=== PATIENT | male | born 1970 | race Caucasian/White ===

== ENCOUNTER → 2017-04-08 | Outpatient (CLI) | payer BC ==
[~2017-04-08] MED LIST: AMLO10TA2 PO; LISI20TA PO; OMEP40CA2 PO
--- NOTE | 2017-04-09 05:03 | REP ---
Clinical: Thyroid nodules. Technique: Real time garces scale ultrasound examination using linear high frequency transducer. Comparison: 04/11/2016. Findings: The thyroid gland is heterogeneous and multinodular appear relatively similar to prior examination. Right lobe measures 4.4 x 1.9 x 1.9 cm and includes 7 x 12 x 11 mm upper pole hypoechoic nodule, 6 x 3 x 3 mm hypoechoic mid pole nodule, and 6 x 7 x 8 mm hypoechoic lower pole nodule. Left lobe measures 3.5 x 1.5 x 1.6 cm and includes 10 x 7 x 7 mm hypoechoic mid pole nodule and 10 x 9 x 6 mm hypoechoic mid/lower pole nodule. Isthmus measures 7 mm in width. Impression: Heterogeneous multinodular thyroid gland relatively similar to prior examination. Signed by Barron Edmonds MD 04/09/2017 04:55 A
== END ==
LOC: M RAD 16:00
PROVIDERS: ATTEND Otolaryngology
DX: E04.1 Nontoxic single thyroid nodule (principal)

== ENCOUNTER 2018-07-29 16:52 | Emergency (ER) | payer BC ==
[~2018-07-29] VITALS: Ht 182.9 cm; Wt 157.3 kg
[~2018-07-29 16:52] MED LIST changes: -AMLO10TA2 PO; +AMLO10TA5 PO
[2018-07-29 16:53] VITALS: BP 138/83
[2018-07-29] MEDS ORDERED: CHLO125TA (17:01)
[2018-07-29] MEDS ORDERED: COLC1CAP (17:01)
[2018-07-29] MEDS ORDERED: LISI40TA (17:01)
[2018-07-29] MEDS ORDERED: SPIR-10 (17:01)
[2018-07-29] MEDS ORDERED: IBUPROFEN 600 MG TAB PO ONE (17:45)
[2018-07-29] MEDS ORDERED: ACETAMINOPHEN 325 MG TAB PO ONE (17:45)
[2018-07-29] MEDS ORDERED: NORCOTAB PO (18:44)
--- NOTE | 2018-07-29 19:57 | REP ---
LEFT WRIST, FOUR VIEWS: HISTORY: Fall. There is a nondisplaced fracture of the distal radius. There is no dislocation. The joint spaces are normal in appearance. IMPRESSION:Nondisplaced fracture of the distal radius. Electronically Signed by Ben Henry MD 07/30/2018 08:07 A
== END 2018-07-29 19:05 | disposition home or self-care (01) ==
LOC: M ED 16:52
DX: S52.502A Unspecified fracture of the lower end of left radius, initial encounter for closed fracture (principal); W19.XXXA Unspecified fall, initial encounter; Y92.410 Unspecified street and highway as the place of occurrence of the external cause

== ENCOUNTER → 2018-07-30 | Outpatient (CLI) | payer BC ==
[~2018-07-30] MED LIST changes: +CHLO125TA; +COLC1CAP; +LISI40TA; +NORCOTAB PO; +SPIR-10
--- NOTE | 2018-07-30 14:48 | REP ---
CT study left wrist without contrast: History: Distal radial fracture. Rule out scaphoid fracture. Rule out DISI deformity. Comparison radiographs July 29, 2018. Technique: Helical scanning is acquired. 2 mm axial images are for generated. Coronal and sagittal MPR images are generated. CT findings: There is a comminuted and articular fracture of the distal radius as seen on radiographs. A horizontal component of the fracture goes through the distal radial metaphysis extending to its lateral cortex. There is a coronally oriented component of the fracture exiting the articular cortex dorsally. This component of the fracture is somewhat displaced and diastatic, 5-6 mm of diastases. There is impaction and slight comminution here as well. No distal ulnar fracture is appreciated. The carpal bones appear intact with no carpal bone or metacarpal fracture visualized. However, the scaphoid appears rotated somewhat in a volar direction. The scapholunate space or interval is somewhat widened consistent with disruption of the scapholunate ligament. The scapholunate angle is increased at 89 degrees. The capitolunate angle is not increased however measured at 29 degrees. Exam is otherwise unremarkable except for soft tissue swelling at the wrist. Impression: Intra-articular distal radial fracture with dorsal area. Off and impaction. There are some features of dorsal intercalated segment instability as discussed above. Electronically Signed by José Yañez MD 07/30/2018 02:39 P
== END ==
LOC: M RAD 13:40
PROVIDERS: ATTEND Physician Assistant Surgical
DX: S52.592A Other fractures of lower end of left radius, initial encounter for closed fracture (principal)

== ENCOUNTER → 2018-10-24 | Outpatient (CLI) | payer BC ==
[~2018-10-24] MED LIST changes: +HYDR-3715 PO; -NORCOTAB PO
--- NOTE | 2018-10-24 16:41 | REP ---
HISTORY: Followup thyroid nodule. COMPARISON: Multiple, the latest 04/08/2017 which showed multinodular thyroid. Right lobe of the thyroid gland measures 4.6 x 2.2 x 2.5 cm and the left lobe measures 5.1 x 1.5 x 2.3 cm. The isthmus measures 6 mm. The thyroid parenchymal echo pattern is markedly heterogenous. In the right lobe of the thyroid gland there are four solid nodules, the largest measures 1.4 x 1 x 1.1 cm, the next 1.1 x 0.8 x 0.8 cm, the next 0.6 x 0.6 x 0.5 cm and the smallest 0.5 x 0.5 x 0.5 cm. On the left there are three solid nodules, the largest measures 1.3 x 0.8 x 1.1 cm, the next is complex cystic and solid measuring 0.9 x 0.8 x 0.6 cm and the smallest is solid measuring 0.4 x 0.3 x 0.7 cm. IMPRESSION: Multinodular goiter as described above. Electronically Signed by Leo Chen DO 10/24/2018 05:13 P
== END ==
LOC: M RAD 13:34
PROVIDERS: ATTEND Otolaryngology
DX: E04.2 Nontoxic multinodular goiter (principal)

== ENCOUNTER 2019-03-02 09:47 | Day surgery (SDC) | payer BC ==
[~2019-03-02] VITALS: Ht 182.9 cm; Wt 163.3 kg
[~2019-03-02 09:47] MED LIST changes: +ATOR1TAB21 PO; -LISI20TA PO; +LISI20TA19 PO; +NS 1,000 ML IV ONE
[2019-03-02] MEDS ORDERED: LIDOCAINE 2% INJ 100 MG/5 ML SDV (FOR ANES.) As Ordered ONE (09:49)
[2019-03-02] MEDS ORDERED: PROPOFOL 200 MG/20 ML VIAL As Ordered ONE ×2 (09:49→11:45)
--- NOTE | 2019-03-02 12:00 | ROOR ---
Patient Name: Juan Lynch Procedure Date: 03/02/2019 11:31 AM Date of : 1970 Age: 48 Room: [facility] Gender: Male Note Status: Finalized Procedure: Total Colonoscopy to Cecum Indications: High risk colon cancer surveillance: Personal history of colonic polyps, Last colonoscopy: 2011 Providers: Rogelio Cook MD Referring MD: Darion Bryant MD Requesting Provider: Medicines: Monitored Anesthesia Care Complications: No immediate complications. Procedure: Pre-Anesthesia Assessment: - The heart rate, respiratory rate, oxygen saturations, blood pressure, adequacy of pulmonary ventilation, and response to care were monitored throughout the procedure. The Colonoscope was introduced through the anus and advanced to the cecum, identified by appendiceal orifice and ileocecal valve. The colonoscopy was performed without difficulty. The patient tolerated the procedure well. The quality of the bowel preparation was excellent. Findings: The perianal and digital rectal examinations were normal. Non-bleeding internal hemorrhoids were found during retroflexion. The hemorrhoids were small and Grade I (internal hemorrhoids that do not prolapse). No other significant abnormalities were identified in a careful examination of the remainder of the colon. The exam was otherwise without abnormality on direct and retroflexion views. Impression: - Non-bleeding internal hemorrhoids. - The examination was otherwise normal on direct and retroflexion views. - No specimens collected. - The exam was otherwise normal to the cecum. Recommendation: - Patient has a contact number available for emergencies. The signs and symptoms of potential delayed complications were discussed with the patient. Return to normal activities tomorrow. Written discharge instructions were provided to the patient. - High fiber diet. - Discharge patient to home. - Repeat colonoscopy in 5 years for surveillance. - Return to referring physician. - The findings and recommendations were discussed with the patient's family. Rogelio Cook MD Rogelio Cook MD 03/02/2019 12:00:06 PM Electronically signed by Rogelio Cook MD Number of Addenda: 0 Note Initiated On: 03/02/2019 11:31 AM Estimated Blood Loss: Estimated blood loss: none.
[2019-03-02 12:41] VITALS: BP 139/87
== END 2019-03-02 12:31 | disposition home or self-care (01) ==
LOC: M OPP 09:47 → MERGE 11:00 → M OPP 12:31
PROVIDERS: ATTEND Internal Medicine Gastroenterology
DX: Z12.11 Encounter for screening for malignant neoplasm of colon (principal); Z86.010 Personal history of colon polyps; K64.0 First degree hemorrhoids; G47.30 Sleep apnea, unspecified; Z79.899 Other long term (current) drug therapy

== ENCOUNTER → 2020-03-03 | Outpatient (CLI) | payer BC ==
[~2020-03-03] MED LIST changes: -AMLO10TA5 PO; +AMLO1TAB25 PO; -LISI20TA19 PO; +LISI20TA35 PO; -NS 1,000 ML IV ONE; -OMEP40CA2 PO; +OMEP40CA97 PO
--- NOTE | 2020-03-15 10:28 | REP ---
THYROID ULTRASOUND CLINICAL: Follow-up multinodular goiter. TECHNIQUE: Real-time garces scale and color evaluation using linear high frequency and curved array transducers. COMPARISON: Multiple examinations dating between 10/24/2018 and 09/28/2015. FINDINGS: Examination is limited due to technical factors and body habitus. The thyroid gland is diffusely heterogeneous and multinodular essentially unchanged from prior examinations. The right lobe measures approximately 4.9 x 2.4 x 2.2 cm with multiple hypoechoic nodules measuring up to approximately 16 x 13 x 11 mm. The left thyroid lobe measures 4.0 x 1.9 x 2.2 cm and includes multiple hypoechoic nodules measuring up to approximately 12 x 10 x 12 mm. IMPRESSION: Heterogeneous multinodular goiter essentially unchanged from prior examination. Examination is somewhat limited due to body habitus and associated technical factors. MTDD
== END ==
LOC: M RAD 12:52
PROVIDERS: ATTEND Otolaryngology
DX: E04.2 Nontoxic multinodular goiter (principal)

== ENCOUNTER 2021-01-10 06:06 | Day surgery (SDC) | payer BC ==
[~2021-01-10] VITALS: Ht 182.9 cm; Wt 159.8 kg
[~2021-01-10 06:06] MED LIST changes: -LISI40TA; +LISI40TA4; +OMEP40CA4 PO; -OMEP40CA97 PO; -SPIR-10; +SPIR-10 PO
[2021-01-10] MEDS ORDERED: METF500T13 PO (06:13)
[2021-01-10] MEDS ORDERED: NS 1,000 ML IV ONE (07:35)
[2021-01-10 08:21] LABS: BASO % 0.3 % (0.0-1.0); EOS # 0.1 10^3/uL (0.0-0.5); EOS % 1.3 % (0.0-3.0); HEMATOCRIT 44.5 % (42.0-52.0); HEMOGLOBIN 15.8 g/dl (13.5-17.5); LYMPH # 1.4 10^3/uL (1.5-5.0); LYMPH % 12.9 % (24.0-44.0); MEAN CORPUSCULAR HEMOGLOBIN 31.2 pg (27.0-33.0); MEAN CORPUSCULAR HGB CONC 35.5 g/dl (32.0-36.5); MEAN CORPUSCULAR VOLUME 87.9 fl (80.0-96.0); MONO # 0.8 10^3/uL (0.0-0.8); MONO % 7.3 % (2.0-8.0); NEUTROPHILS # 8.1 10^3/uL (1.5-8.5); NEUTROPHILS % 77.8 % (36.0-66.0); PLATELET COUNT, AUTOMATED 155 10^3/uL (150-450); RED BLOOD COUNT 5.06 10^6/uL (4.30-6.10); WHITE BLOOD COUNT 10.5 10^3/uL (4.0-10.0)
[2021-01-10] MEDS ORDERED: ISOVUE-370 76% 100ML VIAL As Ordered ONE (08:30)
[2021-01-10 08:46] LABS: BILIRUBIN,DIRECT 0.2 MG/DL (0.0-0.2); BILIRUBIN,TOTAL 0.9 MG/DL (0.2-1.0); TOTAL PROTEIN 7.3 GM/DL (6.4-8.2)
--- NOTE | 2021-01-10 09:21 | REP ---
INDICATION: RLQ pain. COMPARISON: None. TECHNIQUE: Bolus of 100 mL Isovue 370 scanning through the abdomen pelvis with both coronal and sagittal reconstructions provided. FINDINGS: CT abdomen: Minor dependent atelectatic changes the in the deep sulci, lungs otherwise clear. Heart is not enlarged. There is no pericardial thickening or effusion. Liver shows mild diffuse hypodensity compared to the spleen that may reflect some fatty infiltration. There is a 16 mm hypodensity in the left hepatic lobe, likely a small hepatic cyst. No biliary dilatation, solid mass or ascites. No splenomegaly. A 1.3 cm cyst is seen at the inferior aspect of the spleen. No left upper quadrant ascites. The adrenal glands, gallbladder, pancreas and aorta were all grossly unremarkable. Kidneys show no stone, mass or cyst. There is no hydronephrosis or hydroureter. No periaortic, mesenteric or any retroperitoneal lymphadenopathy. Abdominal portion of the colon shows cystic few scattered diverticula without diverticulitis. There is a 8 mm stone at the proximal appendix. Mid to distal appendix is thickened and there are minor degenerative changes at L5-S1, the bones without any other significant finding. CT pelvis: The bony sacrum, pelvis and hips show minimal degenerative change without fracture or destructive lesion. There is no ventral or inguinal hernia nor pathologic inguinal adenopathy. The distal left colon and sigmoid show a few scattered diverticula without signs of diverticulitis or colitis. Distal small bowel loops in the pelvis were unremarkable. Inflammatory changes are seen in the mid to distal periappendiceal fat. Bladder was unremarkable. I do not see perforation or free air. No abscess. Small bowel loops are unremarkable. There is an umbilical hernia with only omental fat in it. No bowel herniation. No ascites or free air. Bladder is without stone mass or wall thickening. Distal ureters without dilatation or stone. IMPRESSION: 1. Early changes of acute appendicitis with periappendiceal fat stranding from mid to distal tip and with an associated 8 mm appendicolith at its proximal end. No abscess, perforation or other acute finding. There are a few scattered diverticula in the colon without diverticulitis or colitis. 2. Simple cyst in the left lobe of the liver and inferior tip of the spleen. The solid organs in the upper abdomen, gallbladder, stomach and great vessels are unremarkable. No adenopathy. Bones show minor degenerative changes but no acute finding. <Electronically signed by Kunal Mckeon > 01/10/21 0917
[2021-01-10] MEDS ORDERED: PIPERACILLIN/TAZOBACTAM SOD 3.375 GM in D5W MINI-BAG PLUS 50 ML IV ONE (09:45)
[2021-01-10] MEDS ORDERED: CHLO25TA PO (10:00)
[2021-01-10] MEDS ORDERED: LISI40TA4 PO (10:00)
[2021-01-10] MEDS ORDERED: VITA500T41 PO (10:00)
[2021-01-10] MEDS ORDERED: AMLO1TAB24 PO (10:00)
[2021-01-10] MEDS ORDERED: VITMTA PO (10:00)
[2021-01-10] MEDS ORDERED: OMEP-218 PO (10:00)
[2021-01-10 11:35] LABS: RSV AMPLIFICATION NEGATIVE (NEGATIVE)
[2021-01-10] MEDS ORDERED: BUPIVACAINE LIPOSOME/PF 1.3% 20ML VIAL (13.3MG/ML)(EXPAREL)(C9290 PER1MG) As Ordered ONE (13:58)
[2021-01-10] MEDS ORDERED: BUPIVACAINE HCL 0.25% 10ML VIAL As Ordered ONE (13:58)
[2021-01-10] MEDS ORDERED: BUPIVACAINE/EPIN 0.25% 30 ML VIAL As Ordered ONE (13:58)
[2021-01-10] MEDS ORDERED: ZOSYN 3.375GM VIAL (J2543) As Ordered ONE (15:36)
[2021-01-10] MEDS ORDERED: propofoL 200 MG/20 ML VIAL As Ordered ONE (16:27)
[2021-01-10] MEDS ORDERED: ACETAMINOPHEN 1000MG 100ML IV BTL (OFIRMEV) (J0131 PER 10MG) As Ordered ONE (16:27)
[2021-01-10] MEDS ORDERED: fentaNYL 250 MCG/5 ML INJECTION (J3010) As Ordered ONE (16:27)
[2021-01-10] MEDS ORDERED: dexameTHASONE 4 MG/ML 1ML VIAL (J1100 PER 1MG) As Ordered ONE (16:27)
[2021-01-10] MEDS ORDERED: SUCCINYLCHOLINE 100 MG/5 ML SYRINGE (J0330) As Ordered ONE (16:27)
[2021-01-10] MEDS ORDERED: ePHEDrine SULFATE 25 MG/5 ML(5MG/ML) SYRINGE As Ordered ONE (16:27)
[2021-01-10] MEDS ORDERED: MIDAZOLAM INJ 2MG/2ML VIAL (J2250 PER 1MG) As Ordered ONE (16:27)
[2021-01-10] MEDS ORDERED: KETOROLAC 60MG 2ML VIAL As Ordered ONE (16:27)
[2021-01-10] MEDS ORDERED: LIDOCAINE 2% 100MG/5ML SDV (FOR ANES.) As Ordered ONE (16:27)
[2021-01-10] MEDS ORDERED: SUGAMMADEX SODIUM 500 MG/5 ML VIAL (BRIDION) As Ordered ONE (16:27)
[2021-01-10] MEDS ORDERED: ONDANSETRON 4MG/2ML VIAL As Ordered ONE ×2 (16:27→16:59)
[2021-01-10] MEDS ORDERED: ROCURONIUM BROMIDE 50 MG/5 ML VIAL As Ordered ONE (16:27)
[2021-01-10] MEDS ORDERED: IPRATROPIUM 0.5MG/ALBUTEROL 2.5MG INH SOL UD 3ML (DUONEB) NEB PRN (16:50)
[2021-01-10] MEDS ORDERED: NS 1,000 ML IV SCH (16:50)
[2021-01-10] MEDS ORDERED: MORPHINE 2 MG/ML 1ML VIAL (J2270) IV PRN (16:50)
[2021-01-10] MEDS ORDERED: ONDANSETRON 4MG/2ML VIAL IV PRN ×2 (16:50→17:00)
[2021-01-10] MEDS ORDERED: LR 1,000 ML IV SCH (17:00)
[2021-01-10] MEDS ORDERED: MEPERIDINE INJ 25 MG/ML VIAL (J2175) IV PRN (17:00)
[2021-01-10] MEDS: HYDROMORPHONE HCL 0.5 MG/ 0.5 ML SYRINGE (J1170 PER 1) IV PRN ×2 (17:07→17:13)
[2021-01-10 18:30] VITALS: BP 152/87
[2021-01-10 18:50] VITALS: O2SAT 94
[2021-01-10 19:00] VITALS: BP 151/87
[2021-01-10 19:25] VITALS: BP 158/97
[2021-01-10] MEDS: IPRATROPIUM 0.5MG/ALBUTEROL 2.5MG INH SOL UD 3ML (DUONEB) NEB SCH (20:00)
[2021-01-10] MEDS: PERCOCET 5MG/325MG TAB PO PRN (22:17)
[2021-01-10] MEDS: PIPERACILLIN/TAZOBACTAM SOD 3.375 GM in D5W MINI-BAG PLUS 50 ML IV SCH (22:18)
[2021-01-10] MEDS: KETOROLAC 30 MG/ML 1ML VIAL IV SCH (22:18)
[2021-01-11 02:00] VITALS: BP 133/85
[2021-01-11] MEDS: IPRATROPIUM 0.5MG/ALBUTEROL 2.5MG INH SOL UD 3ML (DUONEB) NEB SCH ×2 (02:00→07:07)
[2021-01-11] MEDS: KETOROLAC 30 MG/ML 1ML VIAL IV SCH ×3 (04:23→11:00)
[2021-01-11] MEDS: PIPERACILLIN/TAZOBACTAM SOD 3.375 GM in D5W MINI-BAG PLUS 50 ML IV SCH ×3 (04:23→10:00)
[2021-01-11 06:00] VITALS: BP 127/79
[2021-01-11] MEDS ORDERED: PANTOPRAZOLE 40MG TAB (PROTONIX) PO SCH (09:00)
[2021-01-11 10:00] VITALS: BP 146/100
[2021-01-11] MEDS: PERCOCET 5MG/325MG TAB PO PRN (14:00)
--- NOTE | 2021-01-17 08:50 | RO ---
OPERATIVE NOTE DATE OF OPERATION: 01/10/2021 PREOPERATIVE DIAGNOSIS: Incarcerated umbilical hernia and acute appendicitis. POSTOPERATIVE DIAGNOSIS: Incarcerated umbilical hernia and acute appendicitis. PROCEDURE: Open repair of incarcerated umbilical hernia and laparoscopic appendectomy. SURGEON: Simone Islas Jr, MD [employer]: ANESTHESIA: General endotracheal anesthesia. EBL: Minimal. FLUIDS: Crystalloid. DESCRIPTION OF PROCEDURE: The patient was brought to the operating room and was given general anesthesia. After adequate anesthesia and preoperative antibiotics were given, the patient was prepped and draped in usual sterile fashion. The patient had developed appendicitis and with the abdominal distention and bloating the patient's umbilical hernia became much more symptomatic and tender and I was not able to reduce this preoperatively. Thus a periumbilical incision was made with skin knife, blunt dissection was carried down to the base of the hernia and this was transected at the level of the fascia. [id number] suture was used to decrease the fascial size and then a 12 mm trocar was placed through this fascial defect into the abdominal cavity, insufflated to 15 mm and suprapubic 5 mm and 5 mm left lower quadrant trocar were both placed and the appendix was taken out first using Harmonic scalpel along the mesentery and then the base of this was transected using FRANCISCO stapler. It was placed in Endo Catch bag, brought out through the umbilicus. The umbilicus was closed with three [id number] #0 Ethibond sutures. The dermis was brought together with 3-0 Vicryl and 4-0 Vicryl subcuticular was used to close all incisions. Dry, sterile dressing was applied. The patient was awakened, extubated and brought to the recovery room awake, alert, hemodynamically stable. Sponge and needle counts correct x2.
== END 2021-01-11 14:00 | disposition home or self-care (01) ==
LOC: M ED 06:06 → M SDC 11:40 → M MS5PR 18:25 → M SDC 01-11 14:00
PROVIDERS: ATTEND Surgery
DX: K35.80 Unspecified acute appendicitis (principal); K42.0 Umbilical hernia with obstruction, without gangrene; I10 Essential (primary) hypertension; E78.5 Hyperlipidemia, unspecified; E11.9 Type 2 diabetes mellitus without complications; G47.30 Sleep apnea, unspecified; K44.9 Diaphragmatic hernia without obstruction or gangrene; M10.9 Gout, unspecified; Z79.899 Other long term (current) drug therapy; Z79.84 Long term (current) use of oral hypoglycemic drugs
CPT/HCPCS: 44970; 74177; 80047; 80076; 81001; 83605; 83690; 85025; 87040; 87631; 88302; 88304; 94640; 96361; 96365; 96366; 96375; 96376; 99284; C9290; J0131; J0330; J1100; J1170; J1885; J2250; J2405; J2543; J3010; Q9967

== ENCOUNTER → 2021-03-01 | Outpatient (CLI) | payer BC ==
[~2021-03-01] MED LIST changes: +AMLO1TAB24 PO; +CHLO25TA PO; +LISI40TA4 PO; +METF500T13 PO; +OMEP-218 PO; +VITA500T41 PO; +VITMTA PO
--- NOTE | 2021-03-01 12:22 | REP ---
INDICATION: NON TOXIC MULTINODULAR GOITER. COMPARISON: 03/03/2020. TECHNIQUE: Real-time sonographic evaluation of thyroid performed. FINDINGS: The right lobe measures 5.4 x 2.3 x 3.2 cm and left lobe 4.8 x 2.1 x 2.0 cm. The thyroid may be slightly larger than on the prior study, previously the right lobe measured 4.9 cm in length and left lobe 4.0 cm in length. There is a stable nodule in the right upper pole which measure 1.5 x 1.2 x 1.4 cm. There is an adjacent nodule measuring 1.8 x 1.0 x 1.2 cm which appears to have increased in size since the prior study. There is a nodule in the right isthmus which measures 1.7 x 1.2 x 1.9 cm, increased in size. In the right lower pole there is a nodule 1.7 x 1.0 x 1.8 cm which has mildly increased in size. In the left upper pole there is a nodule measuring 1.3 x 0.5 x 1.1 cm essentially unchanged. In the left mid aspect there is a nodule 1.4 x 1.1 x 1.3 cm which has increased in size. IMPRESSION: Both lobes of the thyroid appear mildly larger than on the prior study. A nodule in the right upper pole, another in the right isthmus, a nodule in the right lower pole and another in the left mid aspect appear to have mildly increased in size. <Electronically signed by Shade Cherry > 03/01/21 [id number]
== END ==
LOC: M RAD 10:36
PROVIDERS: ATTEND Otolaryngology
DX: E04.2 Nontoxic multinodular goiter (principal)

== ENCOUNTER → 2021-04-28 | Outpatient (CLI) | payer BC ==
[~2021-04-28] MED LIST changes: +LIDOCAINE 1% MDV 20ML VIAL As Ordered ONE
[2021-04-28 13:00] VITALS: BP 174/104
--- NOTE | 2021-04-28 17:19 | REP ---
INDICATION: NED THYROID NODULES. COMPARISON: None. TECHNIQUE: The procedure was performed under the direct supervision of Dr. Cherry. The patient has a history of multiple bilateral thyroid nodule seen on a previous ultrasound dated 03/01/2021. The risks and benefits of the procedure were explained to the patient and informed consent was obtained. The largest nodules on the right left thyroid were localized using ultrasound guidance. The skin was prepped and draped in a sterile fashion. The left thyroid nodule was addressed 1st. 4 mL of 1% lidocaine was used as a local anesthetic. Using ultrasound guidance 6 fine-needle aspirations were obtained using 25 gauge needles. The right thyroid nodule was then addressed. 4 mL of 1% lidocaine was used as a local anesthetic. Using ultrasound guidance 6 fine-needle aspirations were obtained using 25 gauge needles. Estimated blood loss: Less than 1 mL. The patient tolerated the procedure well and there were no immediate complications. After the appropriate amount to monitor convalescence the patient was discharged from the department. FINDINGS: None IMPRESSION: Ultrasound-guided bilateral thyroid biopsy. <Electronically signed by Ricky Hanson > 04/28/21 1536 <Electronically signed by Shade Cherry > 04/28/21 [id number]
== END ==
LOC: M IRPRO 11:20
PROVIDERS: ATTEND Otolaryngology
DX: E04.2 Nontoxic multinodular goiter (principal)

== ENCOUNTER → 2021-08-02 | Outpatient (CLI) | payer BC ==
[~2021-08-02] MED LIST changes: +OMEP-173 PO; -OMEP-218 PO
[2021-08-02 15:15] VITALS: BP 143/86
== END ==
LOC: M IRPRO 14:10
PROVIDERS: ATTEND Otolaryngology
DX: D34 Benign neoplasm of thyroid gland (principal)

== ENCOUNTER → 2022-03-27 | Outpatient (CLI) | payer BC ==
[~2022-03-27] MED LIST changes: -LIDOCAINE 1% MDV 20ML VIAL As Ordered ONE
== END ==
LOC: M RAD 14:54
PROVIDERS: ATTEND Otolaryngology
DX: E04.1 Nontoxic single thyroid nodule (principal)

== ENCOUNTER → 2023-02-22 | Outpatient (CLI) | payer BC | LOC: M RAD 09:12 | PROVIDERS: ATTEND Otolaryngology | DX: E04.2 Nontoxic multinodular goiter (principal) ==

== ENCOUNTER → 2023-04-29 | Outpatient (CLI) | payer BC ==
[~2023-04-29] MED LIST changes: +LIDOCAINE 1% MDV 20ML VIAL As Ordered ONE
[2023-04-29 09:16] VITALS: TEMP 98.2
[2023-04-29 10:33] VITALS: BP 146/94; O2SAT 96
== END ==
LOC: M IRPRO 09:04
PROVIDERS: ATTEND Otolaryngology
DX: E04.1 Nontoxic single thyroid nodule (principal)

== ENCOUNTER → 2024-01-03 | Outpatient (CLI) | payer BC ==
[~2024-01-03] MED LIST changes: -LIDOCAINE 1% MDV 20ML VIAL As Ordered ONE
== END ==
LOC: M RAD 08:58
PROVIDERS: ATTEND Otolaryngology
DX: E04.1 Nontoxic single thyroid nodule (principal)

== ENCOUNTER 2024-02-17 11:31 | Day surgery (SDC) | payer BC ==
[~2024-02-17] VITALS: Ht 182.9 cm; Wt 159.2 kg
[~2024-02-17 11:31] MED LIST changes: +NS 1,000 ML IV ONE; +SEMA1PEN2 SQ
[2024-02-17] MEDS ORDERED: propofoL 200 MG/20 ML VIAL As Ordered ONE (11:52)
[2024-02-17 12:38] VITALS: TEMP 98.7
[2024-02-17 13:00] VITALS: BP 120/67; O2SAT 97
== END 2024-02-17 13:14 | disposition home or self-care (01) ==
LOC: M OPP 11:31
PROVIDERS: ATTEND Internal Medicine Gastroenterology
DX: Z12.11 Encounter for screening for malignant neoplasm of colon (principal); Z86.010 Personal history of colon polyps; K64.0 First degree hemorrhoids; K57.30 Diverticulosis of large intestine without perforation or abscess without bleeding; E11.9 Type 2 diabetes mellitus without complications; G47.33 Obstructive sleep apnea (adult) (pediatric); Z99.89 Dependence on other enabling machines and devices; Z79.02 Long term (current) use of antithrombotics/antiplatelets; Z79.84 Long term (current) use of oral hypoglycemic drugs; Z79.899 Other long term (current) drug therapy

== ENCOUNTER → 2025-01-29 | Outpatient (CLI) | payer BC ==
[~2025-01-29] MED LIST changes: +LISI40TA10; +LISI40TA10 PO; -LISI40TA4; -LISI40TA4 PO; -NS 1,000 ML IV ONE
== END ==
LOC: M RAD 14:22
PROVIDERS: ATTEND Otolaryngology
DX: E05.20 Thyrotoxicosis with toxic multinodular goiter without thyrotoxic crisis or storm (principal)